=== PATIENT | female | born 1950 | race Caucasian/White ===

== ENCOUNTER 2020-09-01 03:04 | Outpatient (CLI) | payer OTHER, SELFPAY ==
[2020-09-01 08:05] LABS: Abs Immature Grans 0.04 10^3/uL (0.0-0.06); Absolute Basophil Count 0.04 10^3/uL (0.0-0.2); Absolute Eosinophil Count 0.11 10^3/uL (0.0-0.7); Absolute Lymphocyte Count 1.37 10^3/uL (1.2-3.4); Absolute Monocyte Count 0.76 10^3/uL (0.1-0.8); Absolute Neutrophil Count 8.06 10^3/uL (1.2-6.7); Basophils % 0.4; Eosinophils % 1.1; HCT 36.4 % (36.0-46.0); HGB 11.6 g/dL (11.2-15.7); Immature Grans % 0.4; Lymphocytes % 13.2; MCH 26.5 pg (27.0-33.0); MCHC 31.9 % (32.0-36.0); MCV 83.1 fL (80-95); MPV 8.5 fL (8.0-11.0); Monocytes % 7.3; Neutrophils % 77.6; Nucleated RBC 0 %; Platelet Count 411 10^3/uL (130-400); RBC 4.38 10^6/uL (3.93-5.22); RDW 12.3 % (11.7-14.6); RDW-SD 37.7 fL; WBC 10.38 10^3/uL (4.4-10.8)
[2020-09-01 08:24] LABS: ALT 19 U/L (14-59); AST 11 U/L (15-37); Albumin 2.8 g/dL (3.4-5.0); Alkaline Phosphatase 108 U/L (46-116); Anion Gap 8.9 mmol/L (3-11); BUN 15 mg/dL (7-18); Bilirubin, Total 0.3 mg/dL (0.2-1.0); CO2 26.1 mmol/L (21.0-32.0); CREATININE 1.1 mg/dL (0.55-1.02); Calcium 9.1 mg/dL (8.5-10.1); Chloride 99 mmol/L (98-107); Estimated GFR 48.96 (mL/min/1.73m2); Glucose 229 mg/dL (74-106); Potassium 4.2 mmol/L (3.5-5.1); Sodium 134 mmol/L (136-145); Total Protein 8.1 g/dL (6.4-8.2)
[2020-09-01 11:26] LABS: Ferritin 411 ng/mL (8-252)
== END 2020-09-01 03:05 | disposition home or self-care (01) ==
LOC: LBO 03:04
PROVIDERS: PCP Neuromusculoskeletal Medicine & OMM; Visit Provider Internal Medicine
DX: C78.00 Secondary malignant neoplasm of unspecified lung (principal); C64.9 Malignant neoplasm of unspecified kidney, except renal pelvis; R94.6 Abnormal results of thyroid function studies
CPT/HCPCS: 36415; 80053; 82728; 84439; 85025

== ENCOUNTER 2020-09-21 02:58 | Outpatient (CLI) | payer OTHER, SELFPAY ==
[2020-09-21 09:45] LABS: Abs Immature Grans 0.14 10^3/uL (0.0-0.06); Absolute Basophil Count 0.16 10^3/uL (0.0-0.2); Absolute Eosinophil Count 0.12 10^3/uL (0.0-0.7); Absolute Lymphocyte Count 1.47 10^3/uL (1.2-3.4); Absolute Monocyte Count 0.94 10^3/uL (0.1-0.8); Absolute Neutrophil Count 7.33 10^3/uL (1.2-6.7); Basophils % 1.6; Eosinophils % 1.2; HGB 10.8 g/dL (11.2-15.7); Immature Grans % 1.4; Lymphocytes % 14.5; MCH 25.6 pg (27.0-33.0); MCHC 32.7 % (32.0-36.0); MCV 78.2 fL (80-95); MPV 8.2 fL (8.0-11.0); Monocytes % 9.3; Nucleated RBC 0 %; Platelet Count 377 10^3/uL (130-400); RBC 4.22 10^6/uL (3.93-5.22); RDW 13.5 % (11.7-14.6); RDW-SD 38.6 fL; WBC 10.16 10^3/uL (4.4-10.8)
[2020-09-21 10:07] LABS: ALT 26 U/L (14-59); AST 19 U/L (15-37); Albumin 2.3 g/dL (3.4-5.0); Alkaline Phosphatase 153 U/L (46-116); Anion Gap 7.7 mmol/L (3-11); BUN 13 mg/dL (7-18); Bilirubin, Total 0.3 mg/dL (0.2-1.0); CO2 27.3 mmol/L (21.0-32.0); Calcium 9.3 mg/dL (8.5-10.1); Chloride 96 mmol/L (98-107); Estimated GFR 54.66 (mL/min/1.73m2); FREE T4 1.27 ng/dL (0.76-1.46); Glucose 186 mg/dL (74-106); Potassium 4.5 mmol/L (3.5-5.1); Sodium 131 mmol/L (136-145); TSH 0.21 uIU/mL (0.36-3.74); Total Protein 8.1 g/dL (6.4-8.2)
== END 2020-09-21 02:59 | disposition home or self-care (01) ==
LOC: LBO 02:59
PROVIDERS: PCP Neuromusculoskeletal Medicine & OMM; Visit Provider Internal Medicine
DX: C78.00 Secondary malignant neoplasm of unspecified lung (principal); C64.9 Malignant neoplasm of unspecified kidney, except renal pelvis; R94.6 Abnormal results of thyroid function studies
CPT/HCPCS: 36415; 80053; 84439; 84443; 85025

== ENCOUNTER 2020-10-12 10:25 | Outpatient (CLI) | payer OTHER, SELFPAY ==
[2020-10-12 10:40] LABS: Abs Immature Grans 0.07 10^3/uL (0.0-0.06); Absolute Basophil Count 0.05 10^3/uL (0.0-0.2); Basophils % 0.4; Eosinophils % 0.2; HCT 35.7 % (36.0-46.0); HGB 11.2 g/dL (11.2-15.7); Immature Grans % 0.5; Lymphocytes % 6.3; MCH 24.8 pg (27.0-33.0); MCHC 31.4 % (32.0-36.0); MCV 79.2 fL (80-95); MPV 8.1 fL (8.0-11.0); Monocytes % 3.8; Neutrophils % 88.8; Nucleated RBC 0 %; Platelet Count 350 10^3/uL (130-400); RBC 4.51 10^6/uL (3.93-5.22); RDW 14.7 % (11.7-14.6); RDW-SD 42.5 fL; WBC 12.78 10^3/uL (4.4-10.8)
[2020-10-12 10:44] LABS: Absolute Eosinophil Count 0.03 10^3/uL (0.0-0.7); Absolute Lymphocyte Count 0.81 10^3/uL (1.2-3.4); Absolute Monocyte Count 0.49 10^3/uL (0.1-0.8); Absolute Neutrophil Count 11.35 10^3/uL (1.2-6.7)
[2020-10-12 11:04] LABS: ALT 14 U/L (14-59); AST 8 U/L (15-37); Albumin 2.8 g/dL (3.4-5.0); Alkaline Phosphatase 148 U/L (46-116); Anion Gap 11.9 mmol/L (3-11); BUN 15 mg/dL (7-18); Bilirubin, Total 0.4 mg/dL (0.2-1.0); CO2 24.1 mmol/L (21.0-32.0); CREATININE 1.1 mg/dL (0.55-1.02); Calcium 9.4 mg/dL (8.5-10.1); Chloride 95 mmol/L (98-107); Estimated GFR 48.96 (mL/min/1.73m2); FREE T4 1.23 ng/dL (0.76-1.46); Glucose 332 mg/dL (74-106); Sodium 131 mmol/L (136-145); TSH 0.92 uIU/mL (0.36-3.74); Total Protein 7.6 g/dL (6.4-8.2)
== END 2020-10-12 10:26 | disposition home or self-care (01) ==
LOC: LBO 10:26
PROVIDERS: PCP Neuromusculoskeletal Medicine & OMM; Visit Provider Internal Medicine
DX: R94.6 Abnormal results of thyroid function studies (principal); C78.00 Secondary malignant neoplasm of unspecified lung; C64.9 Malignant neoplasm of unspecified kidney, except renal pelvis
CPT/HCPCS: 36415; 80053; 84439; 84443; 85025